=== PATIENT | male | born 1995 | race Two or more races ===

== ENCOUNTER 2020-11-30 23:08 | Emergency (ER) | payer MEDICAID ==
[~2020-11-30] VITALS: Ht 177.8 cm; Wt 68.2 kg
[2020-11-30 23:16] VITALS: BP 111/74
[2020-12-01] MEDS ORDERED: AMOX500C2 PO (01:26)
== END 2020-12-01 01:41 | disposition home or self-care (01) ==
LOC: ER 23:09
DX: R59.1 Generalized enlarged lymph nodes (principal); Z79.2 Long term (current) use of antibiotics
CPT/HCPCS: 99283